=== PATIENT | female | born 1970 | race Caucasian/White ===

== ENCOUNTER 2022-03-22 08:24 | Emergency (ER) | payer SELFPAY ==
[2022-03-22] MEDS ORDERED: Sodium Chloride 0.9% 10 ML Syringe FLUSH PRN ×2 (09:20→10:09)
[2022-03-22 09:49] LABS: CORONAVIRUS COVID-19 NAA NEGATIVE (NEGATIVE)
[2022-03-22] MEDS ORDERED: Iopamidol 755 Mg/ML 100 ML Bottle IVPUSH ONE (10:09)
[2022-03-22] MEDS ORDERED: Sodium Chloride 0.9% 100 ML IV SCH (10:15)
[2022-03-22] MEDS ORDERED: Sodium Chloride 0.9% 500 ML IV ONE ×2 (11:49→14:14)
[2022-03-22] MEDS ORDERED: cefTRIAXone 1 GM in Sodium Chloride 0.9% 100 ML IV ONE (14:16)
== END 2022-03-22 15:30 | disposition home or self-care (01) ==
LOC: JD.ED 08:24
DX: N30.00 Acute cystitis without hematuria (principal); D64.89 Other specified anemias; R60.0 Localized edema; N28.9 Disorder of kidney and ureter, unspecified; C64.2 Malignant neoplasm of left kidney, except renal pelvis; Z79.899 Other long term (current) drug therapy; Z20.822 Contact with and (suspected) exposure to COVID-19
CPT/HCPCS: 0241U; 36415; 71250; 74176; 80053; 81001; 83605; 83690; 83735; 83880; 84484; 85025; 85610; 85730; 86140; 93005; 96361; 96365; 99285; J0696; J3490; J7030; 36410

== ENCOUNTER 2022-03-25 15:17 | Inpatient (IN) | payer SELFPAY ==
[2022-03-25] MEDS ORDERED: Midodrine 5 MG Tab PO STA (17:15)
[2022-03-25] MEDS: Sodium Chloride 0.9% 10 ML Syringe FLUSH PRN (17:33)
[2022-03-25] MEDS: Sodium Chloride 0.9% 1,000 ML IV SCH (19:10)
[2022-03-25] MEDS ORDERED: Meropenem Premix 500 MG in Premix Bag 1 BAG IV SCH (19:15)
[2022-03-25] MEDS: Meropenem Premix 500 MG in Premix Bag 1 BAG IV SCH (22:22)
[2022-03-26] MEDS: Meropenem Premix 500 MG in Premix Bag 1 BAG IV SCH ×4 (05:14→22:29)
[2022-03-26] MEDS: Sodium Chloride 0.9% 1,000 ML IV SCH (05:14)
[2022-03-26] MEDS: Midodrine 5 MG Tab PO SCH ×3 (09:07→20:34)
[2022-03-26] MEDS ORDERED: Sodium Chloride 0.9% 500 ML IV ONE (09:31)
[2022-03-26] MEDS: Morphine 2 MG/ML SYRINGE IVPUSH PRN (22:51)
[2022-03-27] MEDS: Sodium Chloride 0.9% 1,000 ML IV SCH (05:06)
[2022-03-27] MEDS ORDERED: Pantoprazole 40 MG Tab.CR PO SCH (06:00)
[2022-03-27] MEDS: Meropenem Premix 500 MG in Premix Bag 1 BAG IV SCH ×3 (06:39→23:30)
[2022-03-27] MEDS ORDERED: cefTRIAXone 1 GM in Sodium Chloride 0.9% 100 ML IV SCH (09:00)
[2022-03-27] MEDS ORDERED: diphenhydrAMINE 50 MG/ML SDV IV ONE (09:30)
[2022-03-27] MEDS ORDERED: Acetaminophen 325 MG Tab PO ONE (09:30)
[2022-03-27] MEDS: Midodrine 5 MG Tab PO SCH ×3 (09:45→21:22)
[2022-03-27] MEDS ORDERED: Sodium Chloride 0.9% 250 ML IV SCH (10:45)
[2022-03-27] MEDS: Morphine 2 MG/ML SYRINGE IVPUSH PRN ×2 (17:31→20:03)
[2022-03-27] MEDS ORDERED: Furosemide 20 MG/2 ML VIAL IVPUSH ONE (18:42)
[2022-03-27] MEDS ORDERED: Sodium Chloride 0.9% 10 ML Syringe FLUSH PRN (20:15)
[2022-03-27] MEDS: LORazepam 2 MG/ML SDV IVPUSH PRN (20:33)
[2022-03-27] MEDS: Meropenem 500 MG in Sodium Chloride 0.9% 100 ML IV SCH (22:24)
[2022-03-27] MEDS: Sodium Chloride 0.9% 10 ML Syringe FLUSH PRN (22:25)
[2022-03-28] MEDS: Morphine 2 MG/ML SYRINGE IVPUSH PRN ×2 (03:40→18:31)
[2022-03-28] MEDS: LORazepam 2 MG/ML SDV IVPUSH PRN ×3 (05:04→16:00)
[2022-03-28] MEDS: Meropenem 500 MG in Sodium Chloride 0.9% 100 ML IV SCH ×3 (06:17→22:13)
[2022-03-28] MEDS ORDERED: Furosemide 20 MG/2 ML VIAL IVPUSH ONE (07:33)
[2022-03-28] MEDS: Albumin 25% 12.5 GM in Premix Bag 1 BAG IV SCH ×4 (08:02→11:36)
[2022-03-28] MEDS: Midodrine 5 MG Tab PO SCH ×3 (09:14→20:22)
[2022-03-28] MEDS: Pantoprazole 40 MG Vial IVPUSH SCH (09:23)
[2022-03-28] MEDS ORDERED: Morphine 2 MG/ML SYRINGE IVPUSH PRN (13:08)
[2022-03-28] MEDS ORDERED: Furosemide 40 MG/4 ML VIAL IVPUSH ONE (14:00)
[2022-03-29] MEDS ORDERED: Furosemide 40 MG/4 ML VIAL IVPUSH ONE (01:05)
[2022-03-29] MEDS: Albuterol/Ipratropium 3.0-0.5 MG/3 ML Neb Soln NEB PRN ×5 (01:19→20:44)
[2022-03-29] MEDS: Meropenem 500 MG in Sodium Chloride 0.9% 100 ML IV SCH ×3 (05:48→21:37)
[2022-03-29] MEDS ORDERED: VANCOmycin 1.5 GM/300 ML 1.5 GM in Premix Bag 1 BAG IV ONE (07:00)
[2022-03-29] MEDS ORDERED: Lactulose Soln 10 GM/15 ML 30 ML UD Cup PO SCH (09:00)
[2022-03-29] MEDS ORDERED: Thiamine 100 MG in Sodium Chloride 0.9% 100 ML IV SCH (09:00)
[2022-03-29] MEDS: Rifaximin 550 MG Tab PO SCH ×2 (10:09→20:36)
[2022-03-29] MEDS: Lactulose Soln 10 GM/15 ML 30 ML UD Cup NGTUBE SCH ×3 (10:09→20:36)
[2022-03-29] MEDS: Midodrine 5 MG Tab PO SCH ×3 (10:09→20:36)
[2022-03-29] MEDS: Pantoprazole 40 MG Vial IVPUSH SCH (10:09)
[2022-03-29] MEDS: Thiamine 200 MG/2 ML MDV IV SCH (10:10)
[2022-03-29] MEDS: Morphine 2 MG/ML SYRINGE IVPUSH PRN (10:32)
[2022-03-29] MEDS: LORazepam 2 MG/ML SDV IVPUSH PRN (12:38)
[2022-03-30] MEDS: Albuterol/Ipratropium 3.0-0.5 MG/3 ML Neb Soln NEB PRN ×6 (00:41→22:31)
[2022-03-30] MEDS: Meropenem 500 MG in Sodium Chloride 0.9% 100 ML IV SCH ×3 (05:47→22:09)
[2022-03-30] MEDS: Albumin 25% 12.5 GM in Premix Bag 1 BAG IV SCH ×2 (07:57→08:55)
[2022-03-30] MEDS: Midodrine 5 MG Tab PO SCH ×3 (07:59→20:07)
[2022-03-30] MEDS: Rifaximin 550 MG Tab PO SCH ×2 (07:59→20:07)
[2022-03-30] MEDS: Lactulose Soln 10 GM/15 ML 30 ML UD Cup NGTUBE SCH ×3 (08:00→20:07)
[2022-03-30] MEDS ORDERED: VANCOmycin 1.25 GM/250 ML 1.25 GM in Premix Bag 1 BAG IV SCH (08:00)
[2022-03-30] MEDS ORDERED: VANCOmycin 1.5 GM/300 ML 1.5 GM in Premix Bag 1 BAG IV SCH (08:00)
[2022-03-30] MEDS ORDERED: Furosemide 40 MG/4 ML VIAL IVPUSH ONE (08:00)
[2022-03-30] MEDS: Thiamine 200 MG/2 ML MDV IV SCH (08:05)
[2022-03-30] MEDS: D5 1/2 NS w/ 20 mEq/L KCl 1,000 ML IV SCH (08:06)
[2022-03-30] MEDS: Pantoprazole 40 MG Vial IVPUSH SCH (08:08)
[2022-03-30] MEDS: Albumin 25% 25 GM in Premix Bag 1 BAG IV SCH (08:35)
[2022-03-30] MEDS ORDERED: VANCOmycin 500 MG/100 ML 500 MG in Premix Bag 1 BAG IV SCH (12:00)
[2022-03-31] MEDS: D5 1/2 NS w/ 20 mEq/L KCl 1,000 ML IV SCH (02:47)
[2022-03-31] MEDS: Albuterol/Ipratropium 3.0-0.5 MG/3 ML Neb Soln NEB PRN ×3 (04:19→13:08)
[2022-03-31] MEDS: Meropenem 500 MG in Sodium Chloride 0.9% 100 ML IV SCH ×2 (05:40→14:17)
[2022-03-31] MEDS ORDERED: Insulin Lispro 100 Unit/ML 3 ML KwikPen SUBCUT ONE ×2 (06:54→06:58)
[2022-03-31] MEDS: Pantoprazole 40 MG Vial IVPUSH SCH (08:06)
[2022-03-31] MEDS: Rifaximin 550 MG Tab PO SCH (08:06)
[2022-03-31] MEDS: Thiamine 200 MG/2 ML MDV IV SCH (08:06)
[2022-03-31] MEDS: Midodrine 5 MG Tab PO SCH ×2 (08:06→14:17)
[2022-03-31] MEDS: Lactulose Soln 10 GM/15 ML 30 ML UD Cup NGTUBE SCH ×2 (08:06→14:17)
[2022-03-31] MEDS ORDERED: Insulin Lispro 100 Unit/ML 3 ML KwikPen SUBCUT SCH (16:00)
[2022-03-31] MEDS ORDERED: fentaNYL 100 MCG/2 ML SDV IVPUSH PRN (16:20)
[2022-03-31] MEDS ORDERED: Glycopyrrolate 0.2 MG/ML SDV IVPUSH PRN (16:40)
[2022-03-31] MEDS: LORazepam 2 MG/ML SDV IVPUSH PRN ×2 (17:02→17:35)
[2022-03-31] MEDS ORDERED: VANCOmycin 500 MG/100 ML 500 MG in Premix Bag 1 BAG IV SCH (23:00)
== END 2022-03-31 19:12 | disposition expired | DRG 871 ==
LOC: JD.ED 15:17 → UNDOADMIN 20:47 → JD.MS 20:47 → JD.ICU 03-27 19:31
PROVIDERS: ADMIT Internal Medicine; ATTEND Internal Medicine
PROC: 5A09457 Assistance with Respiratory Ventilation, 24-96 Consecutive Hours, Continuous Positive Airway Pressure (ICD-10-PCS; principal; 2022-03-27)
PROC: 30233N1 Transfusion of Nonautologous Red Blood Cells into Peripheral Vein, Percutaneous Approach (ICD-10-PCS; 2022-03-27)
PROC: 0DH67UZ Insertion of Feeding Device into Stomach, Via Natural or Artificial Opening (ICD-10-PCS; 2022-03-27)
PROC: 3E0G76Z Introduction of Nutritional Substance into Upper GI, Via Natural or Artificial Opening (ICD-10-PCS; 2022-03-27)
DX: A41.51 Sepsis due to Escherichia coli [E. coli] (principal); J18.9 Pneumonia, unspecified organism; J80 Acute respiratory distress syndrome; E43 Unspecified severe protein-calorie malnutrition; R65.21 Severe sepsis with septic shock; N39.0 Urinary tract infection, site not specified; C78.7 Secondary malignant neoplasm of liver and intrahepatic bile duct; R64 Cachexia; C64.2 Malignant neoplasm of left kidney, except renal pelvis; C78.02 Secondary malignant neoplasm of left lung; C78.01 Secondary malignant neoplasm of right lung; E87.0 Hyperosmolality and hypernatremia; D84.9 Immunodeficiency, unspecified; Z51.5 Encounter for palliative care; Z66 Do not resuscitate; I50.9 Heart failure, unspecified; R73.9 Hyperglycemia, unspecified; E87.5 Hyperkalemia; D63.0 Anemia in neoplastic disease; Z20.822 Contact with and (suspected) exposure to COVID-19; B96.20 Unspecified Escherichia coli [E. coli] as the cause of diseases classified elsewhere; K72.90 Hepatic failure, unspecified without coma; N18.32 Chronic kidney disease, stage 3b; E88.09 Other disorders of plasma-protein metabolism, not elsewhere classified; D63.1 Anemia in chronic kidney disease; Z90.5 Acquired absence of kidney; Z98.890 Other specified postprocedural states; Z85.028 Personal history of other malignant neoplasm of stomach; Z68.21 Body mass index [BMI] 21.0-21.9, adult; Z79.2 Long term (current) use of antibiotics; Z79.899 Other long term (current) drug therapy
CPT/HCPCS: 36415; 36430; 36600; 70450; 70450-26; 71045; 71045-26; 74018; 74018-26; 80048; 80053; 80202; 81001; 82140; 82803; 82947; 83605; 83735; 84100; 85025; 85027; 85610; 86140; 86850; 86900; 86901; 86922; 87040; 87086; 87088; 87186; 92610-GN; 93971-26-RT; 93971-RT; 94640; 94660; 99223; 99233; 99285; A9270-GY; C9113; J0696; J1200; J1815; J1940; J2060; J2185; J2270; J3370; J3411; J3480; J3490; J7030; J7620-GY; P9016; P9047